=== PATIENT | male | born 1945 | race Caucasian/White ===

== ENCOUNTER 2017-09-15 16:30 | Emergency (ER) | payer MEDICARE, BC ==
[2017-09-15 16:31] VITALS: BP 161/73; PULSE 72; RESP 12; TEMP 98.3; O2SAT 98
[2017-09-15] MEDS ORDERED: IOHEXOL 350 MG/ML 10 ML VIAL (for RAD DIAG) IVCONTRAST ONE (16:31)
[2017-09-15 17:31] LABS: BILIRUBIN, URINE NEG (NEG); BLOOD, URINE LARGE (NEG); GLUCOSE,URINE NEG (NEG); KETONE, URINE NEG (NEG); MUCUS URINE FEW /lpf (OCC); NITRITE,URINE NEG (NEG); URINE COLOR YELLOW (YELLW/STRAW); URINE LEUKOCYTE ESTERASE TRACE (NEG)
[2017-09-15] MEDS ORDERED: SODIUM CHLORIDE 0.9% FLUSH 10 ML FLUSH IV FLUSH PRN (21:30)
--- NOTE | 2017-09-15 21:31 | PD ---
HPI Chief Complaint: Complaint Time Seen by Provider: 21:18 Travel History International Travel<30 days: No Contact w/Intl Traveler<30days: No Traveled to known affect area: No History of Present Illness HPI 72-year-old male here for evaluation of hematuria. The patient first noted gross hematuria yesterday evening and again this morning. States that it seemed to cleared up, then returned this afternoon. He is on aspirin and Plavix. No other antiplatelets or anticoagulants. He has never had gross hematuria in the past. No dysuria. No abdominal pain. States he is able to urinate. No known history of any cancers. Reports that he had a physical exam last month and had normal routine labs as well as reportedly normal PSA. He is from [place] and is driving down with his significant other and plans on going all the way down to the [facility]. [facility] Social History Tobacco Use: No (Former smoker) Allergies-Medications (Allergen,Severity, Reaction): Coded Allergies: No Known Allergies (Unverified , 09/15/17) Reported Meds & Prescriptions Reported Meds & Active Scripts Active Reported Multi-Vitamin Daily (Multiple Vitamin) 1 Tab Tab 1 Tab PO DAILY Tamsulosin (Tamsulosin HCl) 0.4 Mg Cap 0.4 Mg PO HS Lyrica (Pregabalin) 300 Mg Cap 200 Mg PO BID Bupropion HCl 100 Mg Tab 150 Mg PO BID Allopurinol 300 Mg Tab 300 Mg PO DAILY Levothyroxine (Levothyroxine Sodium) 150 Mcg Tab 150 Mcg PO DAILY Fish Oil + D3 (Fish Oil-Cholecalciferol) 1,200-1,000 Mg-Unit Cap 1 Cap PO DAILY Atorvastatin (Atorvastatin Calcium) 40 Mg Tab 40 Mg PO HS Clopidogrel (Clopidogrel Bisulfate) 75 Mg Tab 75 Mg PO DAILY Ramipril 10 Mg Cap 10 Mg PO DAILY Review of Systems Except as stated in HPI: all other systems reviewed are Neg Physical Exam Narrative GENERAL: Well-developed, well-nourished, no apparent distress. SKIN: Focused skin assessment warm/dry. HEAD: Atraumatic. Normocephalic. EYES: Pupils equal and round. No scleral icterus. No injection or drainage. ENT: Mucous membranes pink and moist. CARDIOVASCULAR: Regular rate and rhythm. No murmur appreciated. RESPIRATORY: No accessory muscle use. Clear to auscultation. Breath sounds equal bilaterally. GASTROINTESTINAL: Abdomen soft, non-tender, nondistended. MUSCULOSKELETAL: No obvious deformities. No clubbing. No cyanosis. No edema. NEUROLOGICAL: Awake and alert. No obvious cranial nerve deficits. Motor grossly within normal limits. Normal speech. PSYCHIATRIC: Appropriate mood and affect; insight and judgment normal. Data Data Last Documented VS Vital Signs Date Time Temp Pulse Resp B/P (MAP) Pulse Ox O2 Delivery O2 Flow Rate FiO2 09/15/17 23:47 09/15/17 22:58 54 16 99 Room Air 09/15/17 16:31 98.3 Orders Orders Urinalysis - C+S If Indicated (09/15/17 17:01) Complete Blood Count With Diff (09/15/17 21:27) Comprehensive Metabolic Panel (09/15/17 21:27) Prothrombin Time / Inr (Pt) (09/15/17 21:27) Act Partial Throm Time (Ptt) (09/15/17 21:27) Ct Abd/Pel W Iv Contrast(Rout) (09/15/17 21:27) Iv Access Insert/Monitor (09/15/17 21:27) Ecg Monitoring (09/15/17 21:27) Oximetry (09/15/17 21:27) Sodium Chloride 0.9% Flush (Ns Flush) (09/15/17 21:30) Creatine Kinase (Cpk) (09/15/17 21:31) Iohexol 350 Inj (Omnipaque 350 Inj) (09/15/17 16:31) Ed Discharge Order (09/15/17 23:34) Labs Laboratory Tests Test 09/15/17 17:05 09/15/17 21:50 Urine Color YELLOW Urine Turbidity HAZY Urine pH 5.0 Urine Specific [place] 1.014 Urine Protein TRACE mg/dL Urine Glucose (UA) NEG mg/dL Urine Ketones NEG mg/dL Urine Occult Blood LARGE Urine Nitrite NEG Urine Bilirubin NEG Urine Urobilinogen LESS THAN 2.0 MG/DL Urine Leukocyte Esterase TRACE Urine RBC /hpf Urine WBC 5 /hpf Urine Mucus FEW /lpf Microscopic Urinalysis Comment CULT NOT INDICATED White Blood Count 8.8 TH/MM3 Red Blood Count 4.85 MIL/MM3 Hemoglobin 15.0 GM/DL Hematocrit 43.3 % Mean Corpuscular Volume 89.3 FL Mean Corpuscular Hemoglobin 31.0 PG Mean Corpuscular Hemoglobin Concent 34.7 % Red Cell Distribution Width 13.2 % Platelet Count 202 TH/MM3 Mean Platelet Volume 9.3 FL Neutrophils (%) (Auto) 68.1 % Lymphocytes (%) (Auto) 19.5 % Monocytes (%) (Auto) 8.6 % Eosinophils (%) (Auto) 2.9 % Basophils (%) (Auto) 0.9 % Neutrophils # (Auto) 6.0 TH/MM3 Lymphocytes # (Auto) 1.7 TH/MM3 Monocytes # (Auto) 0.8 TH/MM3 Eosinophils # (Auto) 0.3 TH/MM3 Basophils # (Auto) 0.1 TH/MM3 CBC Comment DIFF FINAL Differential Comment Prothrombin Time 10.2 SEC Prothromb Time International Ratio 1.0 RATIO Activated Partial Thromboplast Time 24.8 SEC Blood Urea Nitrogen 20 MG/DL Creatinine 1.14 MG/DL Random Glucose 96 MG/DL Total Protein 7.8 GM/DL Albumin 3.8 GM/DL Calcium Level 9.1 MG/DL Alkaline Phosphatase 89 U/L Aspartate Amino Transf (AST/SGOT) 36 U/L Alanine Aminotransferase (ALT/SGPT) 59 U/L Total Bilirubin 0.4 MG/DL Sodium Level 139 MEQ/L Potassium Level 4.0 MEQ/L Chloride Level 102 MEQ/L Carbon Dioxide Level 30.2 MEQ/L Anion Gap 7 MEQ/L Estimat Glomerular Filtration Rate 63 ML/MIN Total Creatine Kinase 283 U/L MDM Medical Decision Making Medical Screen Exam Complete: Yes Emergency Medical Condition: Yes Differential Diagnosis Gross hematuria, UTI, nephrolithiasis, bladder cancer, prostate cancer, anemia Narrative Course Initial vital signs show heart rate 72, blood pressure 161/73, pulse ox 98% on room air, tympanic temp of 98.3F. CBC: WBC 8.8, hemoglobin 15, hematocrit 43.3, platelets 202. CMP is unremarkable. UA: Hazy, large occult blood, trace leukocyte esterase, innumerable rbc's, 5 wbc's, culture not indicated. CT abdomen pelvis: CONCLUSION: 1. No evidence of acute abdominal or pelvic process. No masses are identified. 2. Nonobstructing 12 mm left renal stone Patient and the patient's were made aware of all findings. He is resting comfortably. There is no tenderness on his abdominal exam. He is hemodynamically stable. He is able to urinate and empty his bladder. At this point he is stable for discharge home with outpatient follow-up with his primary care physician as well as a urologist this week. He is from [place] and is passing through town on their way to the [facility]. He will arrange for follow-up appointments when he returns to [place] next week. He was advised on when to return to an emergency department. He verbalizes understanding and agreement with plan. Diagnosis Primary Impression: Gross hematuria Referrals: Primary Care Physician 1 week Urologist 1 week Additional Instructions: Follow-up with your primary care physician this week. Follow-up with a urologist this week. Return to the emergency department for worsening symptoms or any other concerns. Disposition: 01 DISCHARGE HOME Condition: Stable David Fang MD Sep 15, 2017 21:31
[2017-09-15] MEDS ORDERED: CLOP75TA PO (21:44)
[2017-09-15] MEDS ORDERED: PREG300 PO (21:44)
[2017-09-15] MEDS ORDERED: BUPR100T4 PO (21:44)
[2017-09-15] MEDS ORDERED: FISHCAP4 PO (21:44)
[2017-09-15] MEDS ORDERED: MULT-65 PO (21:44)
[2017-09-15] MEDS ORDERED: ALLO300T2 PO (21:44)
[2017-09-15] MEDS ORDERED: RAMI10CA PO (21:44)
[2017-09-15] MEDS ORDERED: TAMS0.4C4 PO (21:44)
[2017-09-15] MEDS ORDERED: ATOR40TA16 PO (21:44)
[2017-09-15] MEDS ORDERED: LEVO150T7 PO (21:44)
[2017-09-15 21:45] VITALS: BP 167/80; PULSE 53; RESP 16; O2SAT 95
[2017-09-15 22:30] LABS: PROTHROMBIN TIME - PATIENT 10.2 SEC (9.8-11.6)
[2017-09-15 22:42] LABS: ALBUMIN 3.8 GM/DL (3.4-5.0); AST (GOT) 36 U/L (15-37); BICARBONATE 30.2 MEQ/L (21.0-32.0); BLOOD UREA NITROGEN 20 MG/DL (7-18); CALCIUM 9.1 MG/DL (8.5-10.1); CHLORIDE 102 MEQ/L (98-107); CREATININE 1.14 MG/DL (0.60-1.30); GLOMERULAR FILTRATION RATE 63 ML/MIN (>89); GLUCOSE,RANDOM 96 MG/DL (74-106); SODIUM (NA) 139 MEQ/L (136-145)
[2017-09-15 22:45] LABS: ALKALINE PHOSPHATASE 89 U/L (45-117); ALT (GPT) 59 U/L (12-78); TOTAL BILIRUBIN ADULT 0.4 MG/DL (0.2-1.0); TOTAL PROTEIN 7.8 GM/DL (6.4-8.2)
[2017-09-15 22:58] VITALS: BP 176/83; PULSE 54; RESP 16; O2SAT 99
[2017-09-15 23:06] LABS: BASOPHIL # 0.1 TH/MM3 (0-0.2); BASOPHIL % 0.9 % (0.0-2.0); EOSINOPHIL # 0.3 TH/MM3 (0-0.4); EOSINOPHIL % 2.9 % (0.0-4.0); HEMATOCRIT 43.3 % (39.0-51.0); LYMPH % 19.5 % (9.0-44.0); LYMPHOCYTE # 1.7 TH/MM3 (1.0-4.8); MEAN CELL VOLUME 89.3 FL (80.0-100.0); MEAN CORPUSCULAR HGB CONC 34.7 % (32.0-36.0); MEAN PLATELET VOLUME 9.3 FL (7.0-11.0); MONO % 8.6 % (0.0-8.0); MONOCYTE # 0.8 TH/MM3 (0-0.9); NEUT % 68.1 % (16.0-70.0); PLATELET COUNT 202 TH/MM3 (150-450); RED BLOOD COUNT 4.85 MIL/MM3 (4.50-5.90); RED CELL DISTRIBUTION WIDTH 13.2 % (11.6-17.2); WHITE BLOOD COUNT 8.8 TH/MM3 (4.0-11.0)
--- NOTE | 2017-09-15 23:18 | RADRPT ---
EXAM DATE/TIME: 09/15/2017 22:54 [facility] COMPARISON: No previous studies available for comparison. INDICATIONS : Hematuria. IV CONTRAST: 70 cc Omnipaque 350 (iohexol) IV ORAL CONTRAST: No oral contrast ingested. RADIATION DOSE: 18.92 CTDIvol (mGy) MEDICAL HISTORY : Cardiovascular disease. Hypertension. Renal calculi. SURGICAL HISTORY : Coronary artery stent. ENCOUNTER: Initial ACUITY: 1 day PAIN SCALE: 0/10 LOCATION: abdomen TECHNIQUE: Volumetric scanning of the abdomen and pelvis was performed. Using automated exposure control and ad justment of the mA and/or kV according to patient size, radiation dose was kept as low as reasonably achievable to obtain optimal diagnostic quality images. DICOM format image data is available electro nically for review and comparison. FINDINGS: Examination of the lung bases demonstrates no abnormality. No pleural fluid is identified. No pulmona ry nodules are present. The gallbladder and pancreas are unremarkable. No intrahepatic or extrahepati c ductal dilatation is seen. The adrenal glands are unremarkable. The right kidney is unremarkable. T here is a single stone within the left kidney without hydronephrosis measuring 12 mm. There are simpl e cysts bilaterally the largest measuring 3 cm in the upper pole of the left. Examination of the pelvis demonstrates no evidence of free fluid or pelvic mass. No abnormally enlarg ed inguinal or retroperitoneal lymph nodes are present. The bladder is unremarkable. There is diverti culosis without evidence of diverticulitis. The prostate gland is moderately enlarged impinging on th e bladder base. CONCLUSION: 1. No evidence of acute abdominal or pelvic process. No masses are identified. 2. Nonobstructing 12 mm left renal stone Rafael Ashford MD on September 15, 2017 at 23:12 Board Certified Radiologist. This report was verified electronically.
== END 2017-09-15 23:47 | disposition home or self-care (01) ==
LOC: NEPD 16:30
DX: R31.0 Gross hematuria (principal); N20.0 Calculus of kidney; Z79.02 Long term (current) use of antithrombotics/antiplatelets; Z79.82 Long term (current) use of aspirin; Z87.891 Personal history of nicotine dependence; Z79.899 Other long term (current) drug therapy
CPT/HCPCS: 74177; 80053; 81001; 82550; 85025; 85610; 85730; 99284; Q9967